=== PATIENT | female | born 1985 | race Caucasian/White ===

== ENCOUNTER 2019-04-06 22:39 | Inpatient (IN) | payer MEDICARE ==
[~2019-04-06] VITALS: Ht 147.3 cm; Wt 90.7 kg
[2019-04-06] MEDS ORDERED: UNABLE MC (22:50)
[2019-04-06] MEDS ORDERED: IV NORMAL SALINE 1000ML BAG 1,000 ML IV ONE (23:00)
[2019-04-06 23:03] LABS: BASO # 0.1 x10^3/uL (0.0-0.2); BASO % 1 % (0-3); EOS # 0.3 x10^3/uL (0.0-0.7); EOS % 5 % (0-3); HEMATOCRIT 37.1 % (36.0-47.0); HEMOGLOBIN 12.7 g/dL (12.0-15.5); LYMPH # 1.7 x10^3/uL (1.0-4.8); LYMPH % 28 % (24-48); MEAN CORPUSCULAR HEMOGLOBIN 28 pg (25-35); MEAN CORPUSCULAR HGB CONC 34 g/dL (31-37); MEAN CORPUSCULAR VOLUME 82 fL (79-100); MONO # 0.5 x10^3/uL (0.0-1.1); MONO % 8 % (0-9); NEUT # 3.6 x10^3/uL (1.8-7.7); NEUT % 58 % (31-73); PLATELET COUNT 205 x10^3/uL (140-400); RED BLOOD COUNT 4.53 x10^6/uL (3.50-5.40); RED CELL DISTRIBUTION WIDTH 13.8 % (11.5-14.5); WHITE BLOOD COUNT 6.2 x10^3/uL (4.0-11.0)
[2019-04-06 23:16] LABS: CALCIUM 8.9 mg/dL (8.5-10.1); CREATININE 1.1 mg/dL (0.6-1.0); GFR 57.9; POTASSIUM 3.9 mmol/L (3.5-5.1)
[2019-04-06 23:17] LABS: BILIRUBIN,URINE NEGATIVE (NEG); CLARITY,URINE CLEAR; COLOR,URINE YELLOW; NITRITE,URINE NEGATIVE (NEG); PROTEIN,URINE NEGATIVE (NEG-TRACE); UROBILINOGEN,URINE 0.2 mg/dL (0.2 mg/dL)
[2019-04-06 23:23] LABS: BARBITURATES NEG (NEG); BENZODIAZEPINES POS (NEG); CANNABINOIDS NEG (NEG); COCAINE NEG (NEG); METHADONE NEG (NEG); OPIATES POS (NEG); PHENCYCLIDINE NEG (NEG)
[2019-04-06 23:23] LABS: ALBUMIN 3.5 g/dL (3.4-5.0); ALBUMIN/GLOBULIN RATIO 0.9 (1.0-1.7); MAGNESIUM 2.1 mg/dL (1.8-2.4); TOTAL BILIRUBIN 0.3 mg/dL (0.2-1.0); TOTAL PROTEIN 7.2 g/dL (6.4-8.2)
[2019-04-06 23:24] LABS: AMPHETAMINE/METHAMPHETAMINE NEG (NEG); SQUAMOUS EPITHELIAL CELL,UR MOD /LPF
[2019-04-06 23:25] LABS: BACTERIA,URINE 0 /HPF (0-FEW); RBC,URINE 0 /HPF (0-2); WBC,URINE OCC /HPF (0-4)
--- NOTE | 2019-04-07 00:13 | RAD ---
INDICATION: Altered mental status COMPARISON: None. TECHNIQUE: Axial CT images obtained through the head and cervical spine without intravenous contrast. Coronal and sagittal reformats processed of cervical spine. One or more of the following individualized dose reduction techniques were utilized for this examination: 1. Automated exposure control; 2. Adjustment of the mA and/or kV according to patient size; 3. Use of iterative reconstruction technique. FINDINGS: Head: No intracranial hemorrhage. No midline shift. Basal cisterns patents. Ventricles and sulci are within normal limits. No acute osseous abnormality. Orbits and paranasal sinuses unremarkable. Cervical: No definite acute fracture. No dislocation. No evidence of perivertebral hematoma. IMPRESSION: 1. No acute intracranial hemorrhage. 2. No definite acute fracture or dislocation of the cervical spine. Electronically signed by: Justin Chávez MD (04/07/2019 12:10 AM) [facility]
[2019-04-07] MEDS ORDERED: fentaNYL PF VIAL 100 MCG/2 ML VIAL IV ONE (00:30)
[2019-04-07] MEDS ORDERED: ONDANSETRON PF 4 MG/2 ML VIAL. IV ONE (00:30)
--- NOTE | 2019-04-07 00:32 | PHYS DOC ---
Past Medical History Past Medical History: Anxiety, Seizure Additional Past Medical Histor: svt, pericarditis Past Surgical History: Other Additional Past Surgical Histo: unknown Alcohol Use: None Drug Use: None Adult General Chief Complaint Chief Complaint: SEIZURE HPI HPI Patient is a 33 year old [f__sex] who presents with [] Review of Systems Review of Systems Constitutional: Denies fever or chills [] Eyes: Denies change in visual acuity, redness, or eye pain [] HENT: Denies nasal congestion or sore throat [] Respiratory: Denies cough or shortness of breath [] Cardiovascular: No additional information not addressed in HPI [] GI: Denies abdominal pain, nausea, vomiting, bloody stools or diarrhea [] : Denies dysuria or hematuria [] Musculoskeletal: Denies back pain or joint pain [] Integument: Denies rash or skin lesions [] Neurologic: Denies headache, focal weakness or sensory changes [] Endocrine: Denies polyuria or polydipsia [] All other systems were reviewed and found to be within normal limits, except as documented in this note. Current Medications Current Medications Current Medications Medications (Trade) Dose Ordered Sig/Lyndsey Start Time Stop Time Status Last Admin Dose Admin Lorazepam (Ativan Inj) 1 mg 1X ONCE 04/06/19 23:54 04/07/19 00:05 DC 04/06/19 23:59 1 MG Sodium Chloride 1,000 ml @ 1,000 mls/hr 1X ONCE 04/06/19 23:00 04/06/19 23:59 DC 04/06/19 23:56 1,000 MLS/HR Allergies Allergies Allergies Coded Allergies Type Severity Reaction Last Updated Verified NSAIDS (Non-Steroidal Anti-Inflamma Allergy Unknown 04/07/19 Yes Penicillins Allergy Unknown 04/07/19 Yes Sulfa (Sulfonamide Antibiotics) Allergy Unknown 04/07/19 Yes Physical Exam Physical Exam Constitutional: Well developed, well nourished, no acute distress, non-toxic appearance. [] HENT: Normocephalic, atraumatic, bilateral external ears normal, oropharynx moist, no oral exudates, nose normal. [] Eyes: PERRLA, EOMI, conjunctiva normal, no discharge. [] Neck: Normal range of motion, no tenderness, supple, no stridor. [] Cardiovascular:Heart rate regular rhythm, no murmur [] Lungs & Thorax: Bilateral breath sounds clear to auscultation [] Abdomen: Bowel sounds normal, soft, no tenderness, no masses, no pulsatile masses. [] Skin: Warm, dry, no erythema, no rash. [] Back: No tenderness, no CVA tenderness. [] Extremities: No tenderness, no cyanosis, no clubbing, ROM intact, no edema. [] Neurologic: Alert and oriented X 3, normal motor function, normal sensory function, no focal deficits noted. [] Psychologic: Affect normal, judgement normal, mood normal. [] Current Patient Data Vital Signs Vital Signs Date Time Temp Pulse Resp B/P (MAP) Pulse Ox O2 Delivery O2 Flow Rate FiO2 04/06/19 22:40 98.9 97 16 140/82 (101) 99 Room Air 98.9 Lab Values Laboratory Tests Test 04/06/19 22:48 04/06/19 23:05 04/06/19 23:10 White Blood Count 6.2 x10^3/uL (4.0-11.0) Red Blood Count 4.53 x10^6/uL (3.50-5.40) Hemoglobin 12.7 g/dL (12.0-15.5) Hematocrit 37.1 % (36.0-47.0) Mean Corpuscular Volume 82 fL (79-100) Mean Corpuscular Hemoglobin 28 pg (25-35) Mean Corpuscular Hemoglobin Concent 34 g/dL (31-37) Red Cell Distribution Width 13.8 % (11.5-14.5) Platelet Count 205 x10^3/uL (140-400) Neutrophils (%) (Auto) 58 % (31-73) Lymphocytes (%) (Auto) 28 % (24-48) Monocytes (%) (Auto) 8 % (0-9) Eosinophils (%) (Auto) 5 % (0-3) H Basophils (%) (Auto) 1 % (0-3) Neutrophils # (Auto) 3.6 x10^3/uL (1.8-7.7) Lymphocytes # (Auto) 1.7 x10^3/uL (1.0-4.8) Monocytes # (Auto) 0.5 x10^3/uL (0.0-1.1) Eosinophils # (Auto) 0.3 x10^3/uL (0.0-0.7) Basophils # (Auto) 0.1 x10^3/uL (0.0-0.2) Sodium Level 140 mmol/L (136-145) Potassium Level 3.9 mmol/L (3.5-5.1) Chloride Level 103 mmol/L (98-107) Carbon Dioxide Level 28 mmol/L (21-32) Anion Gap 9 (6-14) Blood Urea Nitrogen 8 mg/dL (7-20) Creatinine 1.1 mg/dL (0.6-1.0) H Estimated GFR (Cockcroft-Gault) 57.9 BUN/Creatinine Ratio 7 (6-20) Glucose Level 95 mg/dL (70-99) Lactic Acid Level 2.8 mmol/L (0.4-2.0) H Calcium Level 8.9 mg/dL (8.5-10.1) Magnesium Level 2.1 mg/dL (1.8-2.4) Total Bilirubin 0.3 mg/dL (0.2-1.0) Aspartate Amino Transferase (AST) 19 U/L (15-37) Alanine Aminotransferase (ALT) 24 U/L (14-59) Alkaline Phosphatase 100 U/L (46-116) Creatine Kinase 60 U/L (26-192) Total Protein 7.2 g/dL (6.4-8.2) Albumin 3.5 g/dL (3.4-5.0) Albumin/Globulin Ratio 0.9 (1.0-1.7) L Ethyl Alcohol Level < 10 mg/dL (0-10) Urine Collection Type U cath Urine Color Yellow Urine Clarity Clear Urine pH 6.0 Urine Specific [place] 1.025 Urine Protein Negative mg/dL (NEG-TRACE) Urine Glucose (UA) Negative mg/dL (NEG) Urine Ketones (Stick) Negative mg/dL (NEG) Urine Blood Negative (NEG) Urine Nitrite Negative (NEG) Urine Bilirubin Negative (NEG) Urine Urobilinogen Dipstick 0.2 mg/dL (0.2 mg/dL) Urine Leukocyte Esterase Negative (NEG) Urine RBC 0 /HPF (0-2) Urine WBC Occ /HPF (0-4) Urine Squamous Epithelial Cells Mod /LPF Urine Bacteria 0 /HPF (0-FEW) Urine Mucus Mod /LPF Urine Opiates Screen Pos (NEG) Urine Methadone Screen Neg (NEG) Urine Barbiturates Neg (NEG) Urine Phencyclidine Screen Neg (NEG) Urine Amphetamine/Methamphetamine Neg (NEG) Urine Benzodiazepines Screen Pos (NEG) Urine Cocaine Screen Neg (NEG) Urine Cannabinoids Screen Neg (NEG) Urine Ethyl Alcohol Neg (NEG) POC Urine HCG, Qualitative Hcg negative (Negative) Laboratory Tests 04/06/19 22:48 Laboratory Tests 04/06/19 22:48 EKG EKG @2248 NSR at 97bpm, NO ST elevation, nonspecific t wave inversion III, V1-V4 Radiology/Procedures Radiology/Procedures [] Course & Med Decision Making Course & Med Decision Making Pertinent Labs and Imaging studies reviewed. (See chart for details) [] Dragon Disclaimer Dragon Disclaimer This electronic medical record was generated, in whole or in part, using a voice recognition dictation system. Departure Departure Impression: Primary Impression: Breakthrough seizure Additional Impression: Lactic acidosis Disposition: ADMITTED INPATIENT Admitting Physician: WILLIS Ruggiero) Condition: STABLE Referrals: NO PCP (PCP) Problem Qualifiers THU GIL DO Apr 07, 2019 00:32
[2019-04-07] MEDS ORDERED: IV NORMAL SALINE 1000ML BAG 1,000 ML IV ONE (00:45)
[2019-04-07] MEDS: ONDANSETRON PF 4 MG/2 ML VIAL. IV PRN ×2 (02:05→06:38)
[2019-04-07] MEDS ORDERED: TRAZ-86 PO (02:29)
[2019-04-07] MEDS ORDERED: ALBU2.5V8 INH (02:29)
[2019-04-07] MEDS ORDERED: HYDR-3135 PO (02:29)
[2019-04-07] MEDS ORDERED: GABA800T5 PO (02:29)
[2019-04-07] MEDS ORDERED: LEVE100020 PO (02:29)
[2019-04-07] MEDS ORDERED: METO100T5 PO (02:29)
[2019-04-07] MEDS ORDERED: DIAZ5TAB4 PO (02:29)
[2019-04-07] MEDS ORDERED: LACO100T PO (02:29)
[2019-04-07] MEDS ORDERED: LEVO25TA55 PO (02:29)
[2019-04-07] MEDS ORDERED: oxyCODONE IR 5 MG TABLET PO PRN (03:00)
[2019-04-07] MEDS ORDERED: ALBUTEROL SULFATE 2.5 MG/3 ML NEBU. NEB PRN (03:00)
[2019-04-07] MEDS ORDERED: GABA600T7 PO (03:10)
[2019-04-07 03:25] VITALS: BP 126/72
[2019-04-07] MEDS ORDERED: LEVOTHYROXINE 25 MCG TABLET. PO SCH (06:00)
--- NOTE | 2019-04-07 06:27 | EKG ---
[facility] [address] [place] [address] Test Date: 2019-04-06 Test Time: 22:49:25 Pat Name: MORGAN WELLS Department: Room: Gender: F Licensed Sales Producer: : 1985 Requested By: THU GIL Order Number: [id number] Reading MD: Measurements Intervals [place] Rate: 97 P: 34 AL: 150 QRS: 41 QRSD: 82 T: 13 QT: 354 QTc: 454 Interpretive Statements SINUS RHYTHM T ABNORMALITY IN ANTERIOR LEADS ABNORMAL ECG RI6.01 No previous ECG available for comparison
[2019-04-07] MEDS: ACETAMINOPHEN 325 MG TABLET. PO PRN ×2 (06:40→06:49)
[2019-04-07] MEDS ORDERED: levETIRAcetam 500 MG TABLET PO ONE (07:00)
[2019-04-07] MEDS ORDERED: LACOSAMIDE 200 MG TABLET PO ONE (07:00)
--- NOTE | 2019-04-07 07:27 | NUR ---
Pt assisted this am to bathroom with assist x1. Pt assisted back to bed and pt with complaints of headache, nausea and states she feels like a seizure is about to come on. Entered room and pt with tremors noted of upper extremities and head. Towards the end of seizure noted pt foaming at the mouth. Pt given medication and after a few minutes pt started to calm down and was oriented to room and surroundings. Pt did start crying afterwards and able to communicate her concerns. Pt instructed on medications and possible side effects. Pt verbalized understanding. No further complaints noted at this time. Will continue current plan of care.
[2019-04-07] MEDS ORDERED: ONDANSETRON PF 4 MG/2 ML VIAL. IV PRN (07:45)
[2019-04-07 07:54] VITALS: BP 122/76
[2019-04-07] MEDS ORDERED: METOPROLOL SUCC 24HR ER 100 MG TAB.ER.24H. PO SCH (09:00)
[2019-04-07] MEDS ORDERED: LACOSAMIDE 50 MG TABLET PO SCH (09:30)
[2019-04-07] MEDS: GABAPENTIN 300 MG CAPSULE. PO SCH ×2 (09:31→14:22)
[2019-04-07] MEDS: HYDROcodone/APAP 7.5/325MG 1 TAB TABLET PO PRN ×2 (09:53→14:23)
--- NOTE | 2019-04-07 10:01 | PDOC1 ---
History and Physical Date of Admission Date of Admission DATE: 04/07/19 TIME: 10:01 Identification/Chief Complaint Chief Complaint Patient is a 33 year old presented to er with seizure, visiting here from [place], visiting her mother whose health is declining, had seizure at local restaurant last night had several minutes of seizure activity. no tongue biting or incontinence, did have elevated lactic acid levels in our emergency department. She is maintained on gabapentin, lacosamide, and levetiracetam. rare etoh intake Past Medical History Past Medical History Past Medical History Past Medical History Past Medical History: Anxiety, Seizure Additional Past Medical Histor: svt, pericarditis Past Surgical History: Other Additional Past Surgical Histo: unknown Alcohol Use: None Drug Use: None Family History Family History: High Cholestrol Social History Smoke: No ALCOHOL: none Drugs: None Current Problem List Problem List Problems Medical Problems: (1) Breakthrough seizure Status: Acute (2) Lactic acidosis Status: Acute Current Medications Current Medications Current Medications Lorazepam (Ativan Inj) 1 mg 1X ONCE IV Last administered on 04/06/19at 23:54; Start 04/06/19 at 23:00; Stop 04/06/19 at 23:01; Status DC Sodium Chloride 1,000 ml @ 1,000 mls/hr 1X ONCE IV Last administered on 04/06/19at 23:56; Start 04/06/19 at 23:00; Stop 04/06/19 at 23:59; Status DC Lorazepam (Ativan Inj) 2 mg STK-MED ONCE .ROUTE ; Start 04/06/19 at 23:31; Stop 04/06/19 at 23:32; Status DC Lorazepam (Ativan Inj) 1 mg 1X ONCE IV Last administered on 04/06/19at 23:59; Start 04/06/19 at 23:54; Stop 04/07/19 at 00:05; Status DC Ondansetron HCl (Zofran) 4 mg 1X ONCE IV Last administered on 04/07/19at 00:28; Start 04/07/19 at 00:30; Stop 04/07/19 at 00:31; Status DC Fentanyl Citrate (Fentanyl 2ml Vial) 50 mcg 1X ONCE IV Last administered on 04/07/19at 00:28; Start 04/07/19 at 00:30; Stop 04/07/19 at 00:31; Status DC Ondansetron HCl (Zofran) 4 mg PRN Q8HRS PRN IV NAUSEA/VOMITING Last administered on 04/07/19 02:05; Start 04/07/19 at 00:45; Stop 04/07/19 at 07:35; Status DC Sodium Chloride 1,000 ml @ 125 mls/hr 1X ONCE IV Last administered on 04/07/19 01:45; Start 04/07/19 at 00:45; Stop 04/07/19 at 08:44; Status DC Lorazepam (Ativan Inj) 1 mg PRN Q2HR PRN IV TREMORS Last administered on 04/07/19 09:35; Start 04/07/19 at 00:45 Oxycodone HCl (Roxicodone) 5 mg PRN Q6HRS PRN PO MODERATE PAIN 4-6 Last administered on 04/07/19 06:50; Start 04/07/19 at 03:00 Albuterol Sulfate (Ventolin Neb Soln) 2.5 mg PRN Q2HR PRN NEB SHORTNESS OF BREATH Last administered on 04/07/19 08:09; Start 04/07/19 at 03:00 Acetaminophen (Tylenol) 650 mg PRN Q6HRS PRN PO PAIN Last administered on 04/07/19 06:50; Start 04/07/19 at 03:00 Levothyroxine Sodium (Synthroid) 25 mcg DAILY06 PO Last administered on 04/07/19 06:40; Start 04/07/19 at 06:00 Metoprolol Succinate (Toprol Xl) 100 mg DAILY PO Last administered on 04/07/19 09:35; Start 04/07/19 at 09:00 Trazodone HCl (Desyrel) 100 mg QHS PO ; Start 04/07/19 at 21:00; Stop 04/07/19 at 09:02; Status DC Lacosamide (Vimpat) 100 mg BID PO ; Start 04/07/19 at 21:00; Stop 04/07/19 at 09:02; Status DC Levetiracetam (Keppra) 1,500 mg BID PO ; Start 04/07/19 at 21:00 Gabapentin (Neurontin) 600 mg TID PO Last administered on 04/07/19 09:35; Start 04/07/19 at 09:00 Levetiracetam (Keppra) 1,500 mg 1X ONCE PO Last administered on 04/07/19at 06:54; Start 04/07/19 at 07:00; Stop 04/07/19 at 07:01; Status DC Lacosamide (Vimpat) 100 mg 1X ONCE PO Last administered on 04/07/19at 06:55; Start 04/07/19 at 07:00; Stop 04/07/19 at 07:01; Status DC Ondansetron HCl (Zofran) 4 mg PRN Q6HRS PRN IV NAUSEA/VOMITING Last administ ered on 04/07/19at 09:53; Start 04/07/19 at 07:45 Lacosamide (Vimpat) 150 mg BID PO ; Start 04/07/19 at 09:30 Trazodone HCl (Desyrel) 150 mg QHS PO ; Start 04/07/19 at 21:00 Acetaminophen/ Hydrocodone Bitart (Lortab 7.5/325) 1 tab PRN Q6HRS PRN PO PAIN Last administered on 04/07/19at 09:53; Start 04/07/19 at 09:00 Active Scripts Active Reported Gabapentin 600 Mg Tablet 600 Mg PO TID Proair Hfa Inhaler (Albuterol Sulfate) 8.5 Gm Hfa.aer.ad 1 Puff INH PRN Q6HRS PRN Trazodone Hcl 100 Mg Tablet 1 Tab PO QHS Bronson 10-325 Tablet (Acetaminophen/Hydrocodone Bitart) 1 Each Tablet 1 Tab PO PRN Q6HRS PRN Toprol Xl (Metoprolol Succinate) 100 Mg Tab.er.24h 1 Tab PO DAILY Diazepam 5 Mg Tablet 5 Mg PO BID Vimpat (Lacosamide) 100 Mg Tablet 100 Mg PO BID Keppra (Levetiracetam) 1,000 Mg Tablet 1.5 Tab PO BID Synthroid (Levothyroxine Sodium) 25 Mcg Tablet 1 Tab PO DAILY Allergies Allergies: Coded Allergies: NSAIDS (Non-Steroidal Anti-Inflamma (Verified Allergy, Unknown, 04/07/19) Penicillins (Verified Allergy, Unknown, 04/07/19) Sulfa (Sulfonamide Antibiotics) (Verified Allergy, Unknown, 04/07/19) ROS Review of System Review of Systems Review of Systems Constitutional: Denies fever or chills [] Eyes: Denies change in visual acuity, redness, or eye pain [] HENT: Denies nasal congestion or sore throat [] Respiratory: Denies cough or shortness of breath [] Cardiovascular: No additional information not addressed in HPI [] GI: Denies abdominal pain, nausea, vomiting, bloody stools or diarrhea [] : Denies dysuria or hematuria [] Musculoskeletal: Denies back pain or joint pain [] Integument: Denies rash or skin lesions [] Neurologic: Denies headache, focal weakness or sensory changes SOME TINGLING AND NUMBNESS both distal arms since [] Endocrine: Denies polyuria or polydipsia [] 14 pt systems were reviewed and found to be within normal limits, except as documented Gastrointestinal: Yes Nausea; No Vomiting, No Abdominal Pain, No Diarrhea, No Constipation, No Melena, No Hematochezia, No Other Genitourinary: No Dysuria, No Frequency, No Incontinence, No Hematuria, No Retention, No Discharge, No Urgency, No Pain, No Flank Pain, No Other, No , No , No , No , No , No , No Musculoskeletal: Yes Joint Stiffness; No Gait Disturbance, No Joint Pain, No Joint Swelling, No Muscle Pain, No Muscular Weakness, No Pain In:, No Swelling In:, No Other Physical Exam Physical Exam Physical Exam Physical Exam Constitutional: Well developed, well nourished, no acute distress, non-toxic appearance. [] HENT: Normocephalic, atraumatic, bilateral external ears normal, oropharynx moist, no oral exudates, nose normal. [] Eyes: PERRLA, EOMI, conjunctiva normal, no discharge. [] Neck: Normal range of motion, no tenderness, supple, no stridor. [] Cardiovascular:Heart rate regular rhythm, no murmur [] Lungs & Thorax: Bilateral breath sounds clear to auscultation [] Abdomen: Bowel sounds normal, soft, no tenderness, no masses, no pulsatile masses. [] Skin: Warm, dry, no erythema, no rash. [] Back: No tenderness, no CVA tenderness. [] Extremities: No tenderness, no cyanosis, no clubbing, ROM intact, no edema. [] Neurologic: Alert and oriented X 3, normal motor function, normal sensory function, no focal deficits noted. [] Psychologic: Affect normal, judgement normal, mood normal. [] General: Alert, Oriented X3, Cooperative HEENT: Atraumatic Lungs: Clear to auscultation Heart: RRR Breasts: Not examined Rectal Exam: not examined PELVIC: Examination not indicated Extremities: No clubbing, No cyanosis Neuro: Normal speech, Cranial nerves 3-12 NL Psych/Mental Status: Mental status NL, Mood NL Vitals Vitals Vital Signs Date Time Temp Pulse Resp B/P (MAP) Pulse Ox O2 Delivery O2 Flow Rate FiO2 04/07/19 09:53 95 Room Air 04/07/19 09:35 89 122/76 04/07/19 07:54 98.8 18 98.8 Labs Labs Laboratory Tests Test 04/06/19 22:48 04/06/19 23:05 04/06/19 23:10 04/07/19 08:25 White Blood Count 6.2 x10^3/uL (4.0-11.0) Red Blood Count 4.53 x10^6/uL (3.50-5.40) Hemoglobin 12.7 g/dL (12.0-15.5) Hematocrit 37.1 % (36.0-47.0) Mean Corpuscular Volume 82 fL (79-100) Mean Corpuscular Hemoglobin 28 pg (25-35) Mean Corpuscular Hemoglobin Concent 34 g/dL (31-37) Red Cell Distribution Width 13.8 % (11.5-14.5) Platelet Count 205 x10^3/uL (140-400) Neutrophils (%) (Auto) 58 % (31-73) Lymphocytes (%) (Auto) 28 % (24-48) Monocytes (%) (Auto) 8 % (0-9) Eosinophils (%) (Auto) 5 % (0-3) Basophils (%) (Auto) 1 % (0-3) Neutrophils # (Auto) 3.6 x10^3/uL (1.8-7.7) Lymphocytes # (Auto) 1.7 x10^3/uL (1.0-4.8) Monocytes # (Auto) 0.5 x10^3/uL (0.0-1.1) Eosinophils # (Auto) 0.3 x10^3/uL (0.0-0.7) Basophils # (Auto) 0.1 x10^3/uL (0.0-0.2) Sodium Level 140 mmol/L (136-145) Potassium Level 3.9 mmol/L (3.5-5.1) Chloride Level 103 mmol/L (98-107) Carbon Dioxide Level 28 mmol/L (21-32) Anion Gap 9 (6-14) Blood Urea Nitrogen 8 mg/dL (7-20) Creatinine 1.1 mg/dL (0.6-1.0) Estimated GFR (Cockcroft-Gault) 57.9 BUN/Creatinine Ratio 7 (6-20) Glucose Level 95 mg/dL (70-99) Lactic Acid Level 2.8 mmol/L (0.4-2.0) 0.8 mmol/L (0.4-2.0) Calcium Level 8.9 mg/dL (8.5-10.1) Magnesium Level 2.1 mg/dL (1.8-2.4) Total Bilirubin 0.3 mg/dL (0.2-1.0) Aspartate Amino Transf (AST/SGOT) 19 U/L (15-37) Alanine Aminotransferase (ALT/SGPT) 24 U/L (14-59) Alkaline Phosphatase 100 U/L (46-116) Creatine Kinase 60 U/L (26-192) Total Protein 7.2 g/dL (6.4-8.2) Albumin 3.5 g/dL (3.4-5.0) Albumin/Globulin Ratio 0.9 (1.0-1.7) Ethyl Alcohol Level < 10 mg/dL (0-10) Urine Collection Type U cath Urine Color Yellow Urine Clarity Clear Urine pH 6.0 Urine Specific [place] 1.025 Urine Protein Negative mg/dL (NEG-TRACE) Urine Glucose (UA) Negative mg/dL (NEG) Urine Ketones (Stick) Negative mg/dL (NEG) Urine Blood Negative (NEG) Urine Nitrite Negative (NEG) Urine Bilirubin Negative (NEG) Urine Urobilinogen Dipstick 0.2 mg/dL (0.2 mg/dL) Urine Leukocyte Esterase Negative (NEG) Urine RBC 0 /HPF (0-2) Urine WBC Occ /HPF (0-4) Urine Squamous Epithelial Cells Mod /LPF Urine Bacteria 0 /HPF (0-FEW) Urine Mucus Mod /LPF Urine Opiates Screen Pos (NEG) Urine Methadone Screen Neg (NEG) Urine Barbiturates Neg (NEG) Urine Phencyclidine Screen Neg (NEG) Urine Amphetamine/Methamphetamine Neg (NEG) Urine Benzodiazepines Screen Pos (NEG) Urine Cocaine Screen Neg (NEG) Urine Cannabinoids Screen Neg (NEG) Urine Ethyl Alcohol Neg (NEG) Bedside Urine HCG, Qualitative Hcg negative (Negative) Laboratory Tests Test 04/06/19 22:48 04/06/19 23:05 04/06/19 23:10 04/07/19 08:25 White Blood Count 6.2 x10^3/uL (4.0-11.0) Red Blood Count 4.53 x10^6/uL (3.50-5.40) Hemoglobin 12.7 g/dL (12.0-15.5) Hematocrit 37.1 % (36.0-47.0) Mean Corpuscular Volume 82 fL (79-100) Mean Corpuscular Hemoglobin 28 pg (25-35) Mean Corpuscular Hemoglobin Concent 34 g/dL (31-37) Red Cell Distribution Width 13.8 % (11.5-14.5) Platelet Count 205 x10^3/uL (140-400) Neutrophils (%) (Auto) 58 % (31-73) Lymphocytes (%) (Auto) 28 % (24-48) Monocytes (%) (Auto) 8 % (0-9) Eosinophils (%) (Auto) 5 % (0-3) Basophils (%) (Auto) 1 % (0-3) Neutrophils # (Auto) 3.6 x10^3/uL (1.8-7.7) Lymphocytes # (Auto) 1.7 x10^3/uL (1.0-4.8) Monocytes # (Auto) 0.5 x10^3/uL (0.0-1.1) Eosinophils # (Auto) 0.3 x10^3/uL (0.0-0.7) Basophils # (Auto) 0.1 x10^3/uL (0.0-0.2) Sodium Level 140 mmol/L (136-145) Potassium Level 3.9 mmol/L (3.5-5.1) Chloride Level 103 mmol/L (98-107) Carbon Dioxide Level 28 mmol/L (21-32) Anion Gap 9 (6-14) Blood Urea Nitrogen 8 mg/dL (7-20) Creatinine 1.1 mg/dL (0.6-1.0) Estimated GFR (Cockcroft-Gault) 57.9 BUN/Creatinine Ratio 7 (6-20) Glucose Level 95 mg/dL (70-99) Lactic Acid Level 2.8 mmol/L (0.4-2.0) 0.8 mmol/L (0.4-2.0) Calcium Level 8.9 mg/dL (8.5-10.1) Magnesium Level 2.1 mg/dL (1.8-2.4) Total Bilirubin 0.3 mg/dL (0.2-1.0) Aspartate Amino Transf (AST/SGOT) 19 U/L (15-37) Alanine Aminotransferase (ALT/SGPT) 24 U/L (14-59) Alkaline Phosphatase 100 U/L (46-116) Creatine Kinase 60 U/L (26-192) Total Protein 7.2 g/dL (6.4-8.2) Albumin 3.5 g/dL (3.4-5.0) Albumin/Globulin Ratio 0.9 (1.0-1.7) Ethyl Alcohol Level < 10 mg/dL (0-10) Urine Collection Type U cath Urine Color Yellow Urine Clarity Clear Urine pH 6.0 Urine Specific [place] 1.025 Urine Protein Negative mg/dL (NEG-TRACE) Urine Glucose (UA) Negative mg/dL (NEG) Urine Ketones (Stick) Negative mg/dL (NEG) Urine Blood Negative (NEG) Urine Nitrite Negative (NEG) Urine Bilirubin Negative (NEG) Urine Urobilinogen Dipstick 0.2 mg/dL (0.2 mg/dL) Urine Leukocyte Esterase Negative (NEG) Urine RBC 0 /HPF (0-2) Urine WBC Occ /HPF (0-4) Urine Squamous Epithelial Cells Mod /LPF Urine Bacteria 0 /HPF (0-FEW) Urine Mucus Mod /LPF Urine Opiates Screen Pos (NEG) Urine Methadone Screen Neg (NEG) Urine Barbiturates Neg (NEG) Urine Phencyclidine Screen Neg (NEG) Urine Amphetamine/Methamphetamine Neg (NEG) Urine Benzodiazepines Screen Pos (NEG) Urine Cocaine Screen Neg (NEG) Urine Cannabinoids Screen Neg (NEG) Urine Ethyl Alcohol Neg (NEG) Bedside Urine HCG, Qualitative Hcg negative (Negative) Images Images : 1985 LOCATION: ER AGE: 33 SEX: F EXAM STATUS: REG ER ORD. PHYSICIAN: THU GIL DO REASON: seizure, altered mental status PROCEDURE: CT HEAD AND CERVICAL SPINE WO INDICATION: Altered mental status COMPARISON: None. TECHNIQUE: Axial CT images obtained through the head and cervical spine without intravenous contrast. Coronal and sagittal reformats processed of cervical spine. One or more of the following individualized dose reduction techniques were utilized for this examination: 1. Automated exposure control; 2. Adjustment of the mA and/or kV according to patient size; 3. Use of iterative reconstruction technique. FINDINGS: Head: No intracranial hemorrhage. No midline shift. Basal cisterns patents. Ventricles and sulci are within normal limits. No acute osseous abnormality. Orbits and paranasal sinuses unremarkable. Cervical: No definite acute fracture. No dislocation. No evidence of perivertebral hematoma. IMPRESSION: 1. No acute intracranial hemorrhage. 2. No definite acute fracture or dislocation of the cervical spine. Electronically signed by: Justin Chávez MD (04/07/2019 12:10 AM) [facility] VTE Prophylaxis Ordered VTE Prophylaxis Devices: Yes VTE Pharmacological Prophylaxi: Yes Assessment/Plan Assessment/Plan impression break-thru seizure No intracranial hemorrhage. on ct head No midline shift. Basal cisterns patents. Ventricles and sulci are within normal limits. morbid obesity muscular pain, post seizure lactic acidosis plan admit increase vimpat dosage to 150mg po bid neurology consult seizure precautions dvt prophylaxis d/w father in room 59 min pt exam, chart review, > 50% of time spent with exam, chart review, pt care coordination RASHEL WOODALL MD Apr 07, 2019 10:01
--- NOTE | 2019-04-07 10:27 | NUR ---
SW following pt for dc planning. Chart reviewed and discussed with RN. Pt lives at home. No SW needs/dc recommendation noted at this time. Will continue to follow pending dc needs.
[2019-04-07 11:55] VITALS: BP 102/63
--- NOTE | 2019-04-07 13:21 | PDOC2 ---
NEUROLOGY CONSULT Date of Admission Date of Admission DATE: 04/07/19 TIME: 13:12 Reason for Consult Reason for Consult: Seizures Referring Physician Referring Physician: Dr. Garay Source Source: Chart review, Patient History of Present Illness History of Present Illness The patient is a 33-year-old right-handed female who has had seizures for the past 14 years. She follows with a neurologist in [place]. She says it she has had numerous electroencephalogram studies including inpatient video monitoring and these have always been normal, even during her episodes. 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 Seizures are worse when she is under stress, sleep deprived, or in pain. She splits her time between [place] and [place]. She was at dinner with a friend when she had several minutes of seizure activity. There was no tongue biting or incontinence, but the patient did have elevated lactic acid levels in our emergency department. She feels sore. She would like some Lortab for her pain. She is maintained on gabapentin, lacosamide, and levetiracetam. She has not had recent levels. She has seen several psychologists and psychiatrists who have been unable to uncover a childhood trauma that causes the psychogenic seizures. She says that she has been having seizures up to several times a day the past 2 weeks because of stress and sleep deprivation. She would like a stronger medication for insomnia. Past Medical History Cardiovascular: HTN Pulmonary: Asthma CENTRAL NERVOUS SYSTEM: Seizure GI: GI bleed Psych: Anxiety, Depression Musculoskeletal: low back pain, Other ( vertebral fracture, toe fracture) Endocrine: Hypothyroidism Past Surgical History Past Surgical History: Cholecystectomy, Other (salpingo-oophorectomy for tumor) Family History Family History: No pertinent hx Social History Social History She lives with her parents when she is in [place], lives with a friend when she is in [place], where alcohol, no tobacco or street drugs. Current Medications Current Medications Current Medications Lorazepam (Ativan Inj) 1 mg 1X ONCE IV Last administered on 04/06/19at 23:54; Start 04/06/19 at 23:00; Stop 04/06/19 at 23:01; Status DC Sodium Chloride 1,000 ml @ 1,000 mls/hr 1X ONCE IV Last administered on 04/06/19at 23:56; Start 04/06/19 at 23:00; Stop 04/06/19 at 23:59; Status DC Lorazepam (Ativan Inj) 2 mg STK-MED ONCE .ROUTE ; Start 04/06/19 at 23:31; Stop 04/06/19 at 23:32; Status DC Lorazepam (Ativan Inj) 1 mg 1X ONCE IV Last administered on 04/06/19at 23:59; Start 04/06/19 at 23:54; Stop 04/07/19 at 00:05; Status DC Ondansetron HCl (Zofran) 4 mg 1X ONCE IV Last administered on 04/07/19 00:28; Start 04/07/19 at 00:30; Stop 04/07/19 at 00:31; Status DC Fentanyl Citrate (Fentanyl 2ml Vial) 50 mcg 1X ONCE IV Last administered on 04/07/19 00:28; Start 04/07/19 at 00:30; Stop 04/07/19 at 00:31; Status DC Ondansetron HCl (Zofran) 4 mg PRN Q8HRS PRN IV NAUSEA/VOMITING Last administered on 04/07/19 02:05; Start 04/07/19 at 00:45; Stop 04/07/19 at 07:35; Status DC Sodium Chloride 1,000 ml @ 125 mls/hr 1X ONCE IV Last administered on 04/07/19 01:45; Start 04/07/19 at 00:45; Stop 04/07/19 at 08:44; Status DC Lorazepam (Ativan Inj) 1 mg PRN Q2HR PRN IV TREMORS Last administered on 04/07/19 09:35; Start 04/07/19 at 00:45 Oxycodone HCl (Roxicodone) 5 mg PRN Q6HRS PRN PO MODERATE PAIN 4-6 Last administered on 04/07/19 06:50; Start 04/07/19 at 03:00 Albuterol Sulfate (Ventolin Neb Soln) 2.5 mg PRN Q2HR PRN NEB SHORTNESS OF BREATH Last administered on 04/07/19 08:09; Start 04/07/19 at 03:00 Acetaminophen (Tylenol) 650 mg PRN Q6HRS PRN PO PAIN Last administered on 04/07/19at 06:50; Start 04/07/19 at 03:00 Levothyroxine Sodium (Synthroid) 25 mcg DAILY06 PO Last administered on 04/07/19 06:40; Start 04/07/19 at 06:00 Metoprolol Succinate (Toprol Xl) 100 mg DAILY PO Last administered on 04/07/19 09:35; Start 04/07/19 at 09:00 Trazodone HCl (Desyrel) 100 mg QHS PO ; Start 04/07/19 at 21:00; Stop 04/07/19 at 09:02; Status DC Lacosamide (Vimpat) 100 mg BID PO ; Start 04/07/19 at 21:00; Stop 04/07/19 at 09:02; Status DC Levetiracetam (Keppra) 1,500 mg BID PO ; Start 04/07/19 at 21:00 Gabapentin (Neurontin) 600 mg TID PO Last administered on 04/07/19at 09:35; Start 04/07/19 at 09:00 Levetiracetam (Keppra) 1,500 mg 1X ONCE PO Last administered on 04/07/19 0 6:54; Start 04/07/19 at 07:00; Stop 04/07/19 at 07:01; Status DC Lacosamide (Vimpat) 100 mg 1X ONCE PO Last administered on 04/07/19 06:55; Start 04/07/19 at 07:00; Stop 04/07/19 at 07:01; Status DC Ondansetron HCl (Zofran) 4 mg PRN Q6HRS PRN IV NAUSEA/VOMITING Last administered on 04/07/19 09:53; Start 04/07/19 at 07:45 Lacosamide (Vimpat) 150 mg BID PO Last administered on 04/07/19 12:48; Start 04/07/19 at 09:30 Trazodone HCl (Desyrel) 150 mg QHS PO ; Start 04/07/19 at 21:00 Acetaminophen/ Hydrocodone Bitart (Lortab 7.5/325) 1 tab PRN Q6HRS PRN PO PAIN Last administered on 04/07/19 09:53; Start 04/07/19 at 09:00 Active Scripts Active Reported Gabapentin 600 Mg Tablet 600 Mg PO TID Proair Hfa Inhaler (Albuterol Sulfate) 8.5 Gm Hfa.aer.ad 1 Puff INH PRN Q6HRS PRN Trazodone Hcl 100 Mg Tablet 1 Tab PO QHS [place] 10-325 Tablet (Acetaminophen/Hydrocodone Bitart) 1 Each Tablet 1 Tab PO PRN Q6HRS PRN Toprol Xl (Metoprolol Succinate) 100 Mg Tab.er.24h 1 Tab PO DAILY Diazepam 5 Mg Tablet 5 Mg PO BID Vimpat (Lacosamide) 100 Mg Tablet 100 Mg PO BID Keppra (Levetiracetam) 1,000 Mg Tablet 1.5 Tab PO BID Synthroid (Levothyroxine Sodium) 25 Mcg Tablet 1 Tab PO DAILY Allergies Allergies: Coded Allergies: NSAIDS (Non-Steroidal Anti-Inflamma (Verified Allergy, Unknown, 04/07/19) Penicillins (Verified Allergy, Unknown, 04/07/19) Sulfa (Sulfonamide Antibiotics) (Verified Allergy, Unknown, 04/07/19) ROS Review of System Negative for fever, chills, weight loss, shortness of breath, chest pain, indigestion, hematochezia, melena, and dysuria. Full 14-point review of systems is negative. Physical Exam Physical Examination General: Well-developed, well-nourished white female in no acute distress HEENT: Normocephalic and�atraumatic.�Temporal arteries�pulsatile and nontender.� Neck: Supple without bruit, no meningismus� Musculoskeletal: Stability:�see neurologic. Gait exam:�see neurologic. Tone:�see neurologic.�Strength:�see neurologic.� Neurological: Mental Status:�intact, orientation, memory, attention span/concentration, language, fund of knowledge normal. Cranial Nerves:�Pupils equal and reactive to light, extraocular movements are�intact, visual shipley are full to confrontation. Facial sensation is normal. There is no facial asymmetry. Vestibulo-ocular reflex is intact. Palate elevates and tongue protrudes in midline. All other cranial related problems are negative except as mentioned before.�Reflexes:�2+ and symmetric with flexor plantar responses. Motor:�5/5 strength with normal tone and bulk. Coordination:�Finger-nose finger and djur-no-vzyx testing are normal. Rapid alternating movements and fine finger movements are intact. Gait:�Normal, including tandem. Sensory:�Normal pinprick, vibration, light touch, proprioception.� Vitals VITALS Vital Signs Date Time Temp Pulse Resp B/P (MAP) Pulse Ox O2 Delivery O2 Flow Rate FiO2 04/07/19 12:48 94 Room Air 04/07/19 11:55 98.8 87 18 102/63 (76) 98.8 Labs Labs Laboratory Tests Test 04/06/19 22:48 04/06/19 23:05 04/06/19 23:10 04/07/19 08:25 White Blood Count 6.2 x10^3/uL (4.0-11.0) Red Blood Count 4.53 x10^6/uL (3.50-5.40) Hemoglobin 12.7 g/dL (12.0-15.5) Hematocrit 37.1 % (36.0-47.0) Mean Corpuscular Volume 82 fL (79-100) Mean Corpuscular Hemoglobin 28 pg (25-35) Mean Corpuscular Hemoglobin Concent 34 g/dL (31-37) Red Cell Distribution Width 13.8 % (11.5-14.5) Platelet Count 205 x10^3/uL (140-400) Neutrophils (%) (Auto) 58 % (31-73) Lymphocytes (%) (Auto) 28 % (24-48) Monocytes (%) (Auto) 8 % (0-9) Eosinophils (%) (Auto) 5 % (0-3) Basophils (%) (Auto) 1 % (0-3) Neutrophils # (Auto) 3.6 x10^3/uL (1.8-7.7) Lymphocytes # (Auto) 1.7 x10^3/uL (1.0-4.8) Monocytes # (Auto) 0.5 x10^3/uL (0.0-1.1) Eosinophils # (Auto) 0.3 x10^3/uL (0.0-0.7) Basophils # (Auto) 0.1 x10^3/uL (0.0-0.2) Sodium Level 140 mmol/L (136-145) Potassium Level 3.9 mmol/L (3.5-5.1) Chloride Level 103 mmol/L (98-107) Carbon Dioxide Level 28 mmol/L (21-32) Anion Gap 9 (6-14) Blood Urea Nitrogen 8 mg/dL (7-20) Creatinine 1.1 mg/dL (0.6-1.0) Estimated GFR (Cockcroft-Gault) 57.9 BUN/Creatinine Ratio 7 (6-20) Glucose Level 95 mg/dL (70-99) Lactic Acid Level 2.8 mmol/L (0.4-2.0) 0.8 mmol/L (0.4-2.0) Calcium Level 8.9 mg/dL (8.5-10.1) Magnesium Level 2.1 mg/dL (1.8-2.4) Total Bilirubin 0.3 mg/dL (0.2-1.0) Aspartate Amino Transf (AST/SGOT) 19 U/L (15-37) Alanine Aminotransferase (ALT/SGPT) 24 U/L (14-59) Alkaline Phosphatase 100 U/L (46-116) Creatine Kinase 60 U/L (26-192) Total Protein 7.2 g/dL (6.4-8.2) Albumin 3.5 g/dL (3.4-5.0) Albumin/Globulin Ratio 0.9 (1.0-1.7) Ethyl Alcohol Level < 10 mg/dL (0-10) Urine Collection Type U cath Urine Color Yellow Urine Clarity Clear Urine pH 6.0 Urine Specific [place] 1.025 Urine Protein Negative mg/dL (NEG-TRACE) Urine Glucose (UA) Negative mg/dL (NEG) Urine Ketones (Stick) Negative mg/dL (NEG) Urine Blood Negative (NEG) Urine Nitrite Negative (NEG) Urine Bilirubin Negative (NEG) Urine Urobilinogen Dipstick 0.2 mg/dL (0.2 mg/dL) Urine Leukocyte Esterase Negative (NEG) Urine RBC 0 /HPF (0-2) Urine WBC Occ /HPF (0-4) Urine Squamous Epithelial Cells Mod /LPF Urine Bacteria 0 /HPF (0-FEW) Urine Mucus Mod /LPF Urine Opiates Screen Pos (NEG) Urine Methadone Screen Neg (NEG) Urine Barbiturates Neg (NEG) Urine Phencyclidine Screen Neg (NEG) Urine Amphetamine/Methamphetamine Neg (NEG) Urine Benzodiazepines Screen Pos (NEG) Urine Cocaine Screen Neg (NEG) Urine Cannabinoids Screen Neg (NEG) Urine Ethyl Alcohol Neg (NEG) Bedside Urine HCG, Qualitative Hcg negative (Negative) Laboratory Tests Test 04/06/19 22:48 04/06/19 23:05 04/06/19 23:10 04/07/19 08:25 White Blood Count 6.2 x10^3/uL (4.0-11.0) Red Blood Count 4.53 x10^6/uL (3.50-5.40) Hemoglobin 12.7 g/dL (12.0-15.5) Hematocrit 37.1 % (36.0-47.0) Mean Corpuscular Volume 82 fL (79-100) Mean Corpuscular Hemoglobin 28 pg (25-35) Mean Corpuscular Hemoglobin Concent 34 g/dL (31-37) Red Cell Distribution Width 13.8 % (11.5-14.5) Platelet Count 205 x10^3/uL (140-400) Neutrophils (%) (Auto) 58 % (31-73) Lymphocytes (%) (Auto) 28 % (24-48) Monocytes (%) (Auto) 8 % (0-9) Eosinophils (%) (Auto) 5 % (0-3) Basophils (%) (Auto) 1 % (0-3) Neutrophils # (Auto) 3.6 x10^3/uL (1.8-7.7) Lymphocytes # (Auto) 1.7 x10^3/uL (1.0-4.8) Monocytes # (Auto) 0.5 x10^3/uL (0.0-1.1) Eosinophils # (Auto) 0.3 x10^3/uL (0.0-0.7) Basophils # (Auto) 0.1 x10^3/uL (0.0-0.2) Sodium Level 140 mmol/L (136-145) Potassium Level 3.9 mmol/L (3.5-5.1) Chloride Level 103 mmol/L (98-107) Carbon Dioxide Level 28 mmol/L (21-32) Anion Gap 9 (6-14) Blood Urea Nitrogen 8 mg/dL (7-20) Creatinine 1.1 mg/dL (0.6-1.0) Estimated GFR (Cockcroft-Gault) 57.9 BUN/Creatinine Ratio 7 (6-20) Glucose Level 95 mg/dL (70-99) Lactic Acid Level 2.8 mmol/L (0.4-2.0) 0.8 mmol/L (0.4-2.0) Calcium Level 8.9 mg/dL (8.5-10.1) Magnesium Level 2.1 mg/dL (1.8-2.4) Total Bilirubin 0.3 mg/dL (0.2-1.0) Aspartate Amino Transf (AST/SGOT) 19 U/L (15-37) Alanine Aminotransferase (ALT/SGPT) 24 U/L (14-59) Alkaline Phosphatase 100 U/L (46-116) Creatine Kinase 60 U/L (26-192) Total Protein 7.2 g/dL (6.4-8.2) Albumin 3.5 g/dL (3.4-5.0) Albumin/Globulin Ratio 0.9 (1.0-1.7) Ethyl Alcohol Level < 10 mg/dL (0-10) Urine Collection Type U cath Urine Color Yellow Urine Clarity Clear Urine pH 6.0 Urine Specific [place] 1.025 Urine Protein Negative mg/dL (NEG-TRACE) Urine Glucose (UA) Negative mg/dL (NEG) Urine Ketones (Stick) Negative mg/dL (NEG) Urine Blood Negative (NEG) Urine Nitrite Negative (NEG) Urine Bilirubin Negative (NEG) Urine Urobilinogen Dipstick 0.2 mg/dL (0.2 mg/dL) Urine Leukocyte Esterase Negative (NEG) Urine RBC 0 /HPF (0-2) Urine WBC Occ /HPF (0-4) Urine Squamous Epithelial Cells Mod /LPF Urine Bacteria 0 /HPF (0-FEW) Urine Mucus Mod /LPF Urine Opiates Screen Pos (NEG) Urine Methadone Screen Neg (NEG) Urine Barbiturates Neg (NEG) Urine Phencyclidine Screen Neg (NEG) Urine Amphetamine/Methamphetamine Neg (NEG) Urine Benzodiazepines Screen Pos (NEG) Urine Cocaine Screen Neg (NEG) Urine Cannabinoids Screen Neg (NEG) Urine Ethyl Alcohol Neg (NEG) Bedside Urine HCG, Qualitative Hcg negative (Negative) Images Images CT HEAD AND CERVICAL SPINE WO INDICATION: Altered mental status COMPARISON: None. TECHNIQUE: Axial CT images obtained through the head and cervical spine without intravenous contrast. Coronal and sagittal reformats processed of cervical spine. One or more of the following individualized dose reduction techniques were utilized for this examination: 1. Automated exposure control; 2. Adjustment of the mA and/or kV according to patient size; 3. Use of iterative reconstruction technique. FINDINGS: Head: No intracranial hemorrhage. No midline shift. Basal cisterns patents. Ventricles and sulci are within normal limits. No acute osseous abnormality. Orbits and paranasal sinuses unremarkable. Cervical: No definite acute fracture. No dislocation. No evidence of perivertebral hematoma. IMPRESSION: 1. No acute intracranial hemorrhage. 2. No definite acute fracture or dislocation of the cervical spine. Assessment/Plan Assessment/Plan Impression: Psychogenic nonepileptic seizures, but her neurologist believes there is an organic component, and it is interesting that she had elevated lactic acid levels, which would be unusual in psychogenic epilepsy. In between my examining the patient and writing this note, she had a 3 minute seizure for which the nurse gave Ativan. Recommendations: I have increased the lacosamide dose as well as the trazodone dose Continue gabapentin and levetiracetam. My original plan was to discharge the patient, she has chronic epilepsy, many of the seizures are nonepileptic and psychogenic, there is not anything we are going to accomplish by continued hospital stay here, but certainly if she continues to have seizures, we will need to watch her for safety. Thank you for letting me help with the patient's care. JOSELINE COSBY MD Apr 07, 2019 13:21
[2019-04-07] MEDS ORDERED: ALBUTEROL SULFATE 2.5 MG/3 ML NEBU. INH PRN (14:00)
[2019-04-07] MEDS ORDERED: fentaNYL PF VIAL 100 MCG/2 ML VIAL IV PRN (14:00)
[2019-04-07] MEDS ORDERED: HYDROcodone/APAP 10/325 1 TAB TABLET PO PRN (14:00)
[2019-04-07] MEDS ORDERED: ENOXAPARIN 40 MG/0.4 ML SYRINGE. SQ SCH (15:00)
--- NOTE | 2019-04-07 15:48 | PDOC3 ---
Discharge Summary Date of Admission: Apr 06, 2019 Date of Discharge: Apr 07, 2019 Follow-Up: 3-5 days Admitting Diagnosis comment: VTE Prophylaxis Ordered VTE Prophylaxis Devices: Yes VTE Pharmacological Prophylaxi: Yes discharge dx Assessment/Plan impression break-thru seizure likely pseudoseizure No intracranial hemorrhage. on ct head No midline shift. Basal cisterns patents. Ventricles and sulci are within normal limits. morbid obesity muscular pain, post seizure lactic acidosis resolved plan admit increase vimpat dosage to 150mg po bid neurology consult reviewed seizure precautions dvt prophylaxis d/w father in room 59 min pt exam, chart review, > 50% of time spent with exam, chart review, pt care coordination FINAL DIAGNOSIS Problems Medical Problems: (1) Breakthrough seizure Status: Acute (2) Lactic acidosis Status: Acute Brief Hospital Course Ms. Meehan is a 33 old [sex] who presented with [ pseudoseizures] CONDITION AT DISCHARGE: Improved Discharge Medications Current Medications Lorazepam (Ativan Inj) 1 mg 1X ONCE IV Last administered on 04/06/19 23:54; Start 04/06/19 at 23:00; Stop 04/06/19 at 23:01; Status DC Sodium Chloride 1,000 ml @ 1,000 mls/hr 1X ONCE IV Last administered on 04/06/19 23:56; Start 04/06/19 at 23:00; Stop 04/06/19 at 23:59; Status DC Lorazepam (Ativan Inj) 2 mg STK-MED ONCE .ROUTE ; Start 04/06/19 at 23:31; Stop 04/06/19 at 23:32; Status DC Lorazepam (Ativan Inj) 1 mg 1X ONCE IV Last administered on 04/06/19at 23:59; Start 04/06/19 at 23:54; Stop 04/07/19 at 00:05; Status DC Ondansetron HCl (Zofran) 4 mg 1X ONCE IV Last administered on 04/07/19 00:28; Start 04/07/19 at 00:30; Stop 04/07/19 at 00:31; Status DC Fentanyl Citrate (Fentanyl 2ml Vial) 50 mcg 1X ONCE IV Last administered on 04/07/19 00:28; Start 04/07/19 at 00:30; Stop 04/07/19 at 00:31; Status DC Ondansetron HCl (Zofran) 4 mg PRN Q8HRS PRN IV NAUSEA/VOMITING Last administered on 04/07/19at 02:05; Start 04/07/19 at 00:45; Stop 04/07/19 at 07:35; Status DC Sodium Chloride 1,000 ml @ 125 mls/hr 1X ONCE IV Last administered on 04/07/19at 01:45; Start 04/07/19 at 00:45; Stop 04/07/19 at 08:44; Status DC Lorazepam (Ativan Inj) 1 mg PRN Q2HR PRN IV TREMORS Last administered on 04/07/19at 09:35; Start 04/07/19 at 00:45 Oxycodone HCl (Roxicodone) 5 mg PRN Q6HRS PRN PO MODERATE PAIN 4-6 Last administered on 04/07/19at 06:50; Start 04/07/19 at 03:00 Albuterol Sulfate (Ventolin Neb Soln) 2.5 mg PRN Q2HR PRN NEB SHORTNESS OF BREATH Last administered on 04/07/19at 08:09; Start 04/07/19 at 03:00; Stop 04/07/19 at 14:04; Status DC Acetaminophen (Tylenol) 650 mg PRN Q6HRS PRN PO PAIN Last administered on 04/07/19at 06:50; Start 04/07/19 at 03:00 Levothyroxine Sodium (Synthroid) 25 mcg DAILY06 PO Last administered on 04/07/19at 06:40; Start 04/07/19 at 06:00 Metoprolol Succinate (Toprol Xl) 100 mg DAILY PO Last administered on 04/07/19at 09:35; Start 04/07/19 at 09:00 Trazodone HCl (Desyrel) 100 mg QHS PO ; Start 04/07/19 at 21:00; Stop 04/07/19 at 09:02; Status DC Lacosamide (Vimpat) 100 mg BID PO ; Start 04/07/19 at 21:00; Stop 04/07/19 at 09:02; Status DC Levetiracetam (Keppra) 1,500 mg BID PO ; Start 04/07/19 at 21:00 Gabapentin (Neurontin) 600 mg TID PO Last administered on 04/07/19 14:24; Start 04/07/19 at 09:00 Levetiracetam (Keppra) 1,500 mg 1X ONCE PO Last administered on 04/07/19 06:54; Start 04/07/19 at 07:00; Stop 04/07/19 at 07:01; Status DC Lacosamide (Vimpat) 100 mg 1X ONCE PO Last administered on 04/07/19 06:55; Start 04/07/19 at 07:00; Stop 04/07/19 at 07:01; Status DC Ondansetron HCl (Zofran) 4 mg PRN Q6HRS PRN IV NAUSEA/VOMITING Last administered on 04/07/19 09:53; Start 04/07/19 at 07:45 Lacosamide (Vimpat) 150 mg BID PO Last administered on 04/07/19 12:48; Start 04/07/19 at 09:30 Trazodone HCl (Desyrel) 150 mg QHS PO ; Start 04/07/19 at 21:00 Acetaminophen/ Hydrocodone Bitart (Lortab 7.5/325) 1 tab PRN Q6HRS PRN PO PAIN MILD TO MOD Last administered on 04/07/19 14:24; Start 04/07/19 at 09:00 Fentanyl Citrate (Fentanyl 2ml Vial) 50 mcg PRN Q8HRS PRN IV PAIN; Start 04/07/19 at 14:00 Albuterol Sulfate (Ventolin Neb Soln) 2.5 mg PRN Q6HRS PRN INH SHORTNESS OF BREATH; Start 04/07/19 at 14:00 Diazepam (Valium) 5 mg BID PO ; Start 04/07/19 at 21:00 Acetaminophen/ Hydrocodone Bitart (Lortab 10/325) 1 tab PRN Q6HRS PRN PO PAIN SEVERE; Start 04/07/19 at 14:00 Enoxaparin Sodium (Lovenox 40mg Syringe) 40 mg Q24H SQ Last administered on 04/07/19 14:24; Start 04/07/19 at 15:00; Stop 04/07/19 at 15:39; Status DC Enoxaparin Sodium (Lovenox 40mg Syringe) 40 mg Q12HR SQ ; Start 04/08/19 at 09:00 Active Scripts Active Reported Gabapentin 600 Mg Tablet 600 Mg PO TID Proair Hfa Inhaler (Albuterol Sulfate) 8.5 Gm Hfa.aer.ad 1 Puff INH PRN Q6HRS PRN Trazodone Hcl 100 Mg Tablet 1 Tab PO QHS [place] 10-325 Tablet (Acetaminophen/Hydrocodone Bitart) 1 Each Tablet 1 Tab PO PRN Q6HRS PRN Toprol Xl (Metoprolol Succinate) 100 Mg Tab.er.24h 1 Tab PO DAILY Diazepam 5 Mg Tablet 5 Mg PO BID Vimpat (Lacosamide) 100 Mg Tablet 100 Mg PO BID Keppra (Levetiracetam) 1,000 Mg Tablet 1.5 Tab PO BID Synthroid (Levothyroxine Sodium) 25 Mcg Tablet 1 Tab PO DAILY Vital Signs Vital Signs Date Time Temp Pulse Resp B/P (MAP) Pulse Ox O2 Delivery O2 Flow Rate FiO2 04/07/19 14:24 Room Air 04/07/19 12:48 94 04/07/19 11:55 98.8 87 18 102/63 (76) 98.8 Labs Laboratory Tests Test 04/06/19 22:48 04/06/19 23:05 04/06/19 23:10 04/07/19 08:25 White Blood Count 6.2 x10^3/uL (4.0-11.0) Red Blood Count 4.53 x10^6/uL (3.50-5.40) Hemoglobin 12.7 g/dL (12.0-15.5) Hematocrit 37.1 % (36.0-47.0) Mean Corpuscular Volume 82 fL (79-100) Mean Corpuscular Hemoglobin 28 pg (25-35) Mean Corpuscular Hemoglobin Concent 34 g/dL (31-37) Red Cell Distribution Width 13.8 % (11.5-14.5) Platelet Count 205 x10^3/uL (140-400) Neutrophils (%) (Auto) 58 % (31-73) Lymphocytes (%) (Auto) 28 % (24-48) Monocytes (%) (Auto) 8 % (0-9) Eosinophils (%) (Auto) 5 % (0-3) Basophils (%) (Auto) 1 % (0-3) Neutrophils # (Auto) 3.6 x10^3/uL (1.8-7.7) Lymphocytes # (Auto) 1.7 x10^3/uL (1.0-4.8) Monocytes # (Auto) 0.5 x10^3/uL (0.0-1.1) Eosinophils # (Auto) 0.3 x10^3/uL (0.0-0.7) Basophils # (Auto) 0.1 x10^3/uL (0.0-0.2) Sodium Level 140 mmol/L (136-145) Potassium Level 3.9 mmol/L (3.5-5.1) Chloride Level 103 mmol/L (98-107) Carbon Dioxide Level 28 mmol/L (21-32) Anion Gap 9 (6-14) Blood Urea Nitrogen 8 mg/dL (7-20) Creatinine 1.1 mg/dL (0.6-1.0) Estimated GFR (Cockcroft-Gault) 57.9 BUN/Creatinine Ratio 7 (6-20) Glucose Level 95 mg/dL (70-99) Lactic Acid Level 2.8 mmol/L (0.4-2.0) 0.8 mmol/L (0.4-2.0) Calcium Level 8.9 mg/dL (8.5-10.1) Magnesium Level 2.1 mg/dL (1.8-2.4) Total Bilirubin 0.3 mg/dL (0.2-1.0) Aspartate Amino Transf (AST/SGOT) 19 U/L (15-37) Alanine Aminotransferase (ALT/SGPT) 24 U/L (14-59) Alkaline Phosphatase 100 U/L (46-116) Creatine Kinase 60 U/L (26-192) Total Protein 7.2 g/dL (6.4-8.2) Albumin 3.5 g/dL (3.4-5.0) Albumin/Globulin Ratio 0.9 (1.0-1.7) Ethyl Alcohol Level < 10 mg/dL (0-10) Urine Collection Type U cath Urine Color Yellow Urine Clarity Clear Urine pH 6.0 Urine Specific Frost 1.025 Urine Protein Negative mg/dL (NEG-TRACE) Urine Glucose (UA) Negative mg/dL (NEG) Urine Ketones (Stick) Negative mg/dL (NEG) Urine Blood Negative (NEG) Urine Nitrite Negative (NEG) Urine Bilirubin Negative (NEG) Urine Urobilinogen Dipstick 0.2 mg/dL (0.2 mg/dL) Urine Leukocyte Esterase Negative (NEG) Urine RBC 0 /HPF (0-2) Urine WBC Occ /HPF (0-4) Urine Squamous Epithelial Cells Mod /LPF Urine Bacteria 0 /HPF (0-FEW) Urine Mucus Mod /LPF Urine Opiates Screen Pos (NEG) Urine Methadone Screen Neg (NEG) Urine Barbiturates Neg (NEG) Urine Phencyclidine Screen Neg (NEG) Urine Amphetamine/Methamphetamine Neg (NEG) Urine Benzodiazepines Screen Pos (NEG) Urine Cocaine Screen Neg (NEG) Urine Cannabinoids Screen Neg (NEG) Urine Ethyl Alcohol Neg (NEG) Bedside Urine HCG, Qualitative Hcg negative (Negative) Laboratory Tests Test 04/06/19 22:48 04/06/19 23:05 04/06/19 23:10 04/07/19 08:25 White Blood Count 6.2 x10^3/uL (4.0-11.0) Red Blood Count 4.53 x10^6/uL (3.50-5.40) Hemoglobin 12.7 g/dL (12.0-15.5) Hematocrit 37.1 % (36.0-47.0) Mean Corpuscular Volume 82 fL (79-100) Mean Corpuscular Hemoglobin 28 pg (25-35) Mean Corpuscular Hemoglobin Concent 34 g/dL (31-37) Red Cell Distribution Width 13.8 % (11.5-14.5) Platelet Count 205 x10^3/uL (140-400) Neutrophils (%) (Auto) 58 % (31-73) Lymphocytes (%) (Auto) 28 % (24-48) Monocytes (%) (Auto) 8 % (0-9) Eosinophils (%) (Auto) 5 % (0-3) Basophils (%) (Auto) 1 % (0-3) Neutrophils # (Auto) 3.6 x10^3/uL (1.8-7.7) Lymphocytes # (Auto) 1.7 x10^3/uL (1.0-4.8) Monocytes # (Auto) 0.5 x10^3/uL (0.0-1.1) Eosinophils # (Auto) 0.3 x10^3/uL (0.0-0.7) Basophils # (Auto) 0.1 x10^3/uL (0.0-0.2) Sodium Level 140 mmol/L (136-145) Potassium Level 3.9 mmol/L (3.5-5.1) Chloride Level 103 mmol/L (98-107) Carbon Dioxide Level 28 mmol/L (21-32) Anion Gap 9 (6-14) Blood Urea Nitrogen 8 mg/dL (7-20) Creatinine 1.1 mg/dL (0.6-1.0) Estimated GFR (Cockcroft-Gault) 57.9 BUN/Creatinine Ratio 7 (6-20) Glucose Level 95 mg/dL (70-99) Lactic Acid Level 2.8 mmol/L (0.4-2.0) 0.8 mmol/L (0.4-2.0) Calcium Level 8.9 mg/dL (8.5-10.1) Magnesium Level 2.1 mg/dL (1.8-2.4) Total Bilirubin 0.3 mg/dL (0.2-1.0) Aspartate Amino Transf (AST/SGOT) 19 U/L (15-37) Alanine Aminotransferase (ALT/SGPT) 24 U/L (14-59) Alkaline Phosphatase 100 U/L (46-116) Creatine Kinase 60 U/L (26-192) Total Protein 7.2 g/dL (6.4-8.2) Albumin 3.5 g/dL (3.4-5.0) Albumin/Globulin Ratio 0.9 (1.0-1.7) Ethyl Alcohol Level < 10 mg/dL (0-10) Urine Collection Type U cath Urine Color Yellow Urine Clarity Clear Urine pH 6.0 Urine Specific Frost 1.025 Urine Protein Negative mg/dL (NEG-TRACE) Urine Glucose (UA) Negative mg/dL (NEG) Urine Ketones (Stick) Negative mg/dL (NEG) Urine Blood Negative (NEG) Urine Nitrite Negative (NEG) Urine Bilirubin Negative (NEG) Urine Urobilinogen Dipstick 0.2 mg/dL (0.2 mg/dL) Urine Leukocyte Esterase Negative (NEG) Urine RBC 0 /HPF (0-2) Urine WBC Occ /HPF (0-4) Urine Squamous Epithelial Cells Mod /LPF Urine Bacteria 0 /HPF (0-FEW) Urine Mucus Mod /LPF Urine Opiates Screen Pos (NEG) Urine Methadone Screen Neg (NEG) Urine Barbiturates Neg (NEG) Urine Phencyclidine Screen Neg (NEG) Urine Amphetamine/Methamphetamine Neg (NEG) Urine Benzodiazepines Screen Pos (NEG) Urine Cocaine Screen Neg (NEG) Urine Cannabinoids Screen Neg (NEG) Urine Ethyl Alcohol Neg (NEG) Bedside Urine HCG, Qualitative Hcg negative (Negative) Allergies Allergies Coded Allergies Type Severity Reaction Last Updated Verified NSAIDS (Non-Steroidal Anti-Inflamma Allergy Unknown 04/07/19 Yes Penicillins Allergy Unknown 04/07/19 Yes Sulfa (Sulfonamide Antibiotics) Allergy Unknown 04/07/19 Yes Disposition/Orders: D/C to Home RASHEL WOODALL MD Apr 07, 2019 15:48
[2019-04-07] MEDS ORDERED: LACO50TA PO (15:50)
--- NOTE | 2019-04-07 15:50 | DISCH ---
DISCHARGE INSTRUCTIONS Condition on Discharge Condition on Discharge: Stable Activity After Discharge Activity Instructions for Disc: Activity as tolerated Lifting Instructions after Dis: No heavy lifting Driving Instructions after Dis: Do not drive Diet after Discharge Diet after Discharge: Regular Checks after Discharge Checks after discharge: Check blood press - daily Contacting the DR. after DC Call your doctor for: If your condition worsens RASHEL WOODALL MD Apr 07, 2019 15:50
--- NOTE | 2019-04-07 17:45 | NUR ---
Pt was discharged and well educated prior to leaving. Escorted out in wheelchair via [facility]
[2019-04-07] MEDS ORDERED: levETIRAcetam 500 MG TABLET PO SCH (21:00)
[2019-04-07] MEDS ORDERED: LACOSAMIDE 200 MG TABLET PO SCH (21:00)
[2019-04-07] MEDS ORDERED: traZODone 100 MG TABLET. PO SCH ×2 (21:00)
[2019-04-07] MEDS ORDERED: diazePAM 5 MG TABLET PO SCH (21:00)
[2019-04-08] MEDS ORDERED: ENOXAPARIN 40 MG/0.4 ML SYRINGE. SQ SCH (09:00)
== END 2019-04-07 17:45 | disposition home or self-care (01) | DRG 880 ==
LOC: ER 22:39 → ED HOLD 04-07 00:25 → 6 SOUTH 04-07 01:10
PROVIDERS: ADMIT Internal Medicine; ATTEND Internal Medicine
DX: F44.5 Conversion disorder with seizures or convulsions (principal); E87.2 Acidosis; Z68.41 Body mass index [BMI] 40.0-44.9, adult; F41.9 Anxiety disorder, unspecified; F32.9 Major depressive disorder, single episode, unspecified; E66.01 Morbid (severe) obesity due to excess calories; G47.00 Insomnia, unspecified; I10 Essential (primary) hypertension; J45.909 Unspecified asthma, uncomplicated; E03.9 Hypothyroidism, unspecified; Z88.6 Allergy status to analgesic agent; Z88.0 Allergy status to penicillin; Z88.2 Allergy status to sulfonamides; Z90.49 Acquired absence of other specified parts of digestive tract
CPT/HCPCS: 36415; 70450; 72125; 80053; 80307; 81001; 81025; 82550; 83605; 83735; 85025; 93005; 94640; 94760; 96361; 96374; 96375; G0480; J1650; J2060; J2405; J3010; J7030; J7613; P9612; 99285-25; G0378